=== PATIENT | female | born 1970 ===

== ENCOUNTER 2016-04-28 20:00 | Emergency (ER) | payer OTHER ==
[2016-04-28] MEDS ORDERED: SODIUM CHLORIDE 0.9% 1,000 ML ONE (20:54)
[2016-04-28] MEDS ORDERED: PREDNISONE 20 MG TABLET ONE (20:55)
[2016-04-28] MEDS ORDERED: DIPHENHYDRAMINE HCL 50 MG/1 ML VIAL ONE (20:55)
[2016-04-28] MEDS ORDERED: KETOROLAC TROMETHAMINE 30 MG/ML 1 ML VIAL ONE (20:55)
[2016-04-28] MEDS ORDERED: HALOPERIDOL LACTATE 5 MG/1 ML AMP ONE (20:55)
[2016-04-28 21:07] LABS: ABSOLUTE NEUTROPHIL COUNT 3.1 K/mm3 (1.8-7.7); BASO # 0.1 K/mm3 (0.0-0.2); BASO % 0.7 % (0.2-1.0); EOS # 0.2 (0.0-0.5); EOS % 2.1 % (0.9-2.9); HEMATOCRIT 43.1 % (37.0-47.0); HEMOGLOBIN 14.4 gm/l (12.0-16.0); IMM NEUT% 0.1 % (0-1); LYMPH # 3.6 (1.0-4.8); LYMPH % 48.1 % (15-45); MEAN CELL VOLUME 85.7 fl (81.0-99.0); MEAN CORPUSCULAR HEMOGLOBIN 28.6 pg (27.0-31.0); MEAN CORPUSCULAR HGB CONC 33.4 g/dl (33.0-37.0); MEAN PLATELET VOLUME 10.6 fl (7.4-10.4); MONO # 0.7 (0.0-0.8); MONO % 8.6 % (4-12); NEUT % 40.4 % (43-75); PLATELET COUNT 319 K/mm3 (130-400); RED CELL DISTRIBUTION WIDTH 12.9 % (11.5-14.5)
[2016-04-28 21:12] LABS: URINE BILIRUBIN NEGATIVE (NEGATIVE); URINE BLOOD NEGATIVE (NEGATIVE); URINE GLUCOSE (UA) NEGATIVE (NEGATIVE); URINE LEUKOCYTE ESTERASE NEGATIVE (NEGATIVE); URINE NITRITE NEGATIVE (NEGATIVE); URINE PROTEIN NEGATIVE (NEGATIVE); URINE UROBILINOGEN NORMAL (0-1 mg/dl)
[2016-04-28 21:15] LABS: URINE APPEARANCE CLEAR; URINE COLOR YELLOW
[2016-04-28 21:17] LABS: ALB/GLOB RATIO 1.5 (>1.0); ALBUMIN 4.6 gm/dL (3.5-5.7); CALCIUM 9.8 mg/dL (8.6-10.3)
== END 2016-04-28 22:07 | disposition home or self-care (01) ==
LOC: ED 20:00
DX: M79.1 Myalgia (principal); I10 Essential (primary) hypertension; J45.909 Unspecified asthma, uncomplicated
CPT/HCPCS: 82150; 85025; 82550; 80053; 81003; 96375; 99283 ×2; 96374; J1200; J1630; J7512; J1885; J7030